=== PATIENT | male | born 1945 | race Two or more races ===

== ENCOUNTER 2021-12-11 06:21 | Day surgery (SDC) | payer OTHER ==
[~2021-12-11 06:21] MED LIST: AMITRIPTYLINE H10 MG PO; RESTORIL30 M1 PO
== END 2021-12-11 12:30 | disposition home or self-care (01) ==
LOC: CIR.AMB 06:21
PROVIDERS: ATTEND Surgery Surgery of the Hand
DX: M72.0 Palmar fascial fibromatosis [Dupuytren] (principal); Z20.822 Contact with and (suspected) exposure to COVID-19; Z88.6 Allergy status to analgesic agent; J45.909 Unspecified asthma, uncomplicated